=== PATIENT | female | born 1950 | race Caucasian/White ===

== ENCOUNTER 2021-12-18 13:27 | Inpatient (IN) | payer OTHER, MEDICARE ==
[~2021-12-18] VITALS: Ht 160 cm; Wt 80.2 kg
[2021-12-18] MEDS ORDERED: MORPHINE 4 MG/ML 1ML VIAL/SYRINGE IV PRN (13:45)
[2021-12-18 14:21] LABS: BASO % 0.4 % (0.0-1.0); EOS # 0.2 10^3/uL (0.0-0.5); EOS % 1.8 % (0.0-3.0); HEMATOCRIT 40.9 % (36.0-47.0); HEMOGLOBIN 13.5 g/dl (12.0-15.5); LYMPH # 0.8 10^3/uL (1.5-5.0); LYMPH % 8.4 % (24.0-44.0); MEAN CORPUSCULAR HEMOGLOBIN 30.2 pg (27.0-33.0); MEAN CORPUSCULAR VOLUME 91.5 fl (80.0-96.0); MONO # 0.6 10^3/uL (0.0-0.8); MONO % 6.6 % (2.0-8.0); NEUTROPHILS # 7.3 10^3/uL (1.5-8.5); NEUTROPHILS % 81.8 % (36.0-66.0); PLATELET COUNT, AUTOMATED 182 10^3/uL (150-450); RED BLOOD COUNT 4.47 10^6/uL (4.00-5.40); WHITE BLOOD COUNT 8.9 10^3/uL (4.0-10.0)
[2021-12-18] MEDS ORDERED: ISOVUE-370 76% 100ML VIAL As Ordered ONE (14:28)
[2021-12-18 14:31] LABS: PROTHROMBIN TIME 13.6 SECONDS (12.7-14.5)
[2021-12-18 14:42] LABS: CK-MB VALUE MASS 3.4 NG/ML (<3.6); MB/CK RELATIVE INDEX 0.84 (< OR =4)
[2021-12-18] MEDS ORDERED: POTASSIUM CHLORIDE 10MEQ SR TABLET PO ONE (17:00)
[2021-12-18] MEDS ORDERED: CLON0.5T2 PO ×2 (17:07)
[2021-12-18] MEDS ORDERED: LEXA1TAB2 PO (17:07)
[2021-12-18] MEDS ORDERED: ARIP1TAB6 PO (17:07)
[2021-12-18] MEDS ORDERED: TRAZ-252 PO (17:07)
[2021-12-18] MEDS ORDERED: PRIL20TA2 PO (17:07)
[2021-12-18] MEDS ORDERED: NAPR220C23 PO (17:07)
[2021-12-18] MEDS ORDERED: TOPI100T9 PO (17:07)
[2021-12-18] MEDS ORDERED: HOME MED LIST COMPLETE! XX SCH (17:10)
[2021-12-18 17:12] LABS: RSV AMPLIFICATION NEGATIVE (NEGATIVE)
[2021-12-18 17:13] LABS: CK-MB VALUE MASS 4.8 NG/ML (<3.6); MB/CK RELATIVE INDEX 2.35 (< OR =4)
[2021-12-18] MEDS ORDERED: ONDANSETRON 4MG 2ML VIAL IV ONE (17:25)
[2021-12-18] MEDS ORDERED: COMBIVENT RESPIMAT 100-20MCG INHALER 4GM INH PRN (19:10)
[2021-12-18] MEDS ORDERED: ACETAMINOPHEN TAB 650MG DOSE (2X325MG) PO PRN ×2 (19:10→19:15)
[2021-12-18] MEDS ORDERED: MORPHINE 2 MG/ML 1ML VIAL IV PRN (19:15)
[2021-12-18] MEDS ORDERED: PILL CUTTER 1 EACH XX PRN (19:40)
[2021-12-18 20:45] LABS: INR 0.98; PROTHROMBIN TIME 13.4 SECONDS (12.7-14.5)
[2021-12-18 20:46] LABS: FIBRINOGEN 426 MG/DL (268-480); PARTIAL THROMBOPLASTIN TIME 22.9 SECONDS (25.9-37.0)
[2021-12-18 21:06] LABS: ALBUMIN 3.7 GM/DL (3.2-5.2); BILIRUBIN,DIRECT 0.5 MG/DL (0.0-0.2); BILIRUBIN,TOTAL 0.7 MG/DL (0.2-1.0); C REACTIVE PROTEIN QUANTITATIV 4.44 MG/DL (0.00-0.30)
[2021-12-18 21:14] LABS: D-DIMER QUANT > 4000 ng/ml (<500)
[2021-12-18 21:15] VITALS: BP 124/76
[2021-12-18] MEDS: traZODone 50 MG TAB PO SCH (22:45)
[2021-12-18] MEDS: clonazePAM 0.5 MG TAB PO SCH (22:46)
[2021-12-18] MEDS: TOPIRAMATE (TopAMAX) 100 MG TAB PO SCH (22:46)
[2021-12-18] MEDS: LR 1,000 ML IV SCH (22:47)
[2021-12-18] MEDS: ENOXAPARIN 40MG/0.4ML SYRINGE (J1650 PER 10MG) SC SCH (22:47)
[2021-12-18 23:57] VITALS: BP 120/63
[2021-12-19] VITALS (8 sets, daily range): BP systolic 106–142; BP diastolic 55–76
[2021-12-19] MEDS ORDERED: REMDESIVIR 200 MG in NS 250 ML IV ONE ×2
[2021-12-19] MEDS ORDERED: SODIUM CHLORIDE 0.9% INJ 10 ML SYR IV ONE (02:00)
[2021-12-19] MEDS: NORCO, ANEXSIA 5/325MG TABLET (HYDROcodone/ACETAMINOPHEN) PO PRN ×2 (03:24→21:05)
[2021-12-19] MEDS: LR 1,000 ML IV SCH ×3 (05:37→20:56)
[2021-12-19] MEDS ORDERED: ALBUTEROL 90 MCG/ACT 8GM HFA INHALER INH PRN (07:00)
[2021-12-19] MEDS ORDERED: ALBUTEROL SULFATE 2.5 MG/0.5 ML INH NEB SOLN INH PRN (07:01)
[2021-12-19] MEDS ORDERED: methylPREDNISolone 125MG 2ML VIAL IV PRN (07:01)
[2021-12-19] MEDS ORDERED: diphenhydrAMINE 50MG/ML VIAL (J1200) IV PRN (07:01)
[2021-12-19] MEDS ORDERED: EPINEPHrine INJ 1 MG/ML 1ML AMP IM PRN (07:01)
[2021-12-19 08:36] LABS: BASO % 0.4 % (0.0-1.0); EOS # 0.1 10^3/uL (0.0-0.5); EOS % 1.1 % (0.0-3.0); HEMATOCRIT 38.7 % (36.0-47.0); HEMOGLOBIN 12.7 g/dl (12.0-15.5); LYMPH # 1.4 10^3/uL (1.5-5.0); LYMPH % 26.2 % (24.0-44.0); MEAN CORPUSCULAR HEMOGLOBIN 30.2 pg (27.0-33.0); MEAN CORPUSCULAR HGB CONC 32.8 g/dl (32.0-36.5); MEAN CORPUSCULAR VOLUME 91.9 fl (80.0-96.0); MONO # 0.4 10^3/uL (0.0-0.8); MONO % 6.6 % (2.0-8.0); NEUTROPHILS # 3.4 10^3/uL (1.5-8.5); NEUTROPHILS % 65.3 % (36.0-66.0); PLATELET COUNT, AUTOMATED 146 10^3/uL (150-450); RED BLOOD COUNT 4.21 10^6/uL (4.00-5.40); WHITE BLOOD COUNT 5.3 10^3/uL (4.0-10.0)
[2021-12-19 08:59] LABS: ALBUMIN 3.3 GM/DL (3.2-5.2); ALT/SGPT 333 U/L (12-78); BILIRUBIN,DIRECT 0.1 MG/DL (0.0-0.2); BILIRUBIN,TOTAL 0.3 MG/DL (0.2-1.0); BLOOD UREA NITROGEN 15 MG/DL (7-18); CALCIUM LEVEL 8.5 MG/DL (8.8-10.2); CARBON DIOXIDE LEVEL 23 MEQ/L (21-32); CHLORIDE LEVEL 113 MEQ/L (98-107); CREATININE FOR GFR 0.86 MG/DL (0.55-1.30); GLOMERULAR FILTRATION RATE > 60.0 (>45); GLUCOSE, FASTING 139 MG/DL (70-100); MAGNESIUM LEVEL 1.9 MG/DL (1.8-2.4); POTASSIUM SERUM 3.7 MEQ/L (3.5-5.1); SODIUM LEVEL 142 MEQ/L (136-145); TOTAL PROTEIN 6.8 GM/DL (6.4-8.2)
[2021-12-19] MEDS: TOPIRAMATE (TopAMAX) 100 MG TAB PO SCH ×2 (09:17→20:56)
[2021-12-19] MEDS: clonazePAM 0.5 MG TAB PO SCH ×3 (09:18→20:55)
[2021-12-19] MEDS: PANTOPRAZOLE 40MG TAB (PROTONIX) PO SCH (09:18)
[2021-12-19] MEDS: ESCITALOPRAM OXALATE 10 MG TAB (LEXAPRO) PO SCH (09:19)
[2021-12-19] MEDS: ENOXAPARIN 40MG/0.4ML SYRINGE (J1650 PER 10MG) SC SCH ×2 (09:37→20:56)
[2021-12-19] MEDS ORDERED: NS 1,000 ML IV SCH (18:40)
[2021-12-19] MEDS ORDERED: BEBTELOVIMAB 175MG 2ML VIAL (EUA) IV ONE (20:00)
[2021-12-19] MEDS: BENZONATATE 100MG CAPSULE PO PRN (20:55)
[2021-12-19] MEDS: traZODone 50 MG TAB PO SCH (20:55)
[2021-12-19] MEDS ORDERED: REMDESIVIR 100 MG in NS 250 ML IV SCH (21:00)
[2021-12-19] MEDS ORDERED: SODIUM CHLORIDE 0.9% INJ 10 ML SYR IV SCH (22:00)
[2021-12-20 04:28] VITALS: BP 144/89
[2021-12-20] MEDS: BENZONATATE 100MG CAPSULE PO PRN (06:12)
[2021-12-20] MEDS: NORCO, ANEXSIA 5/325MG TABLET (HYDROcodone/ACETAMINOPHEN) PO PRN ×3 (06:15→18:31)
[2021-12-20 06:22] LABS: BASO % 0.3 % (0.0-1.0); EOS # 0.3 10^3/uL (0.0-0.5); EOS % 4.6 % (0.0-3.0); HEMATOCRIT 39.7 % (36.0-47.0); HEMOGLOBIN 12.9 g/dl (12.0-15.5); LYMPH # 1.2 10^3/uL (1.5-5.0); LYMPH % 19.9 % (24.0-44.0); MEAN CORPUSCULAR HEMOGLOBIN 29.6 pg (27.0-33.0); MEAN CORPUSCULAR HGB CONC 32.5 g/dl (32.0-36.5); MEAN CORPUSCULAR VOLUME 91.1 fl (80.0-96.0); MONO # 0.7 10^3/uL (0.0-0.8); MONO % 11.1 % (2.0-8.0); NEUTROPHILS # 3.9 10^3/uL (1.5-8.5); NEUTROPHILS % 63.9 % (36.0-66.0); PLATELET COUNT, AUTOMATED 138 10^3/uL (150-450); RED BLOOD COUNT 4.36 10^6/uL (4.00-5.40)
[2021-12-20 06:34] LABS: INR 1.05; PROTHROMBIN TIME 14.2 SECONDS (12.7-14.5)
[2021-12-20 06:35] LABS: PARTIAL THROMBOPLASTIN TIME 39.6 SECONDS (25.9-37.0)
[2021-12-20 06:45] LABS: ALT/SGPT 221 U/L (12-78); BILIRUBIN,TOTAL 0.4 MG/DL (0.2-1.0); BLOOD UREA NITROGEN 14 MG/DL (7-18); CALCIUM LEVEL 8.6 MG/DL (8.8-10.2); CARBON DIOXIDE LEVEL 27 MEQ/L (21-32); CHLORIDE LEVEL 111 MEQ/L (98-107); CREATININE FOR GFR 0.66 MG/DL (0.55-1.30); GLOMERULAR FILTRATION RATE > 60.0 (>45); GLUCOSE, FASTING 94 MG/DL (70-100); POTASSIUM SERUM 3.8 MEQ/L (3.5-5.1); SODIUM LEVEL 142 MEQ/L (136-145); TOTAL PROTEIN 6.5 GM/DL (6.4-8.2)
[2021-12-20 06:54] LABS: ALBUMIN 3.2 GM/DL (3.2-5.2); BILIRUBIN,DIRECT 0.1 MG/DL (0.0-0.2); BILIRUBIN,TOTAL 0.4 MG/DL (0.2-1.0); MAGNESIUM LEVEL 1.7 MG/DL (1.8-2.4); TOTAL PROTEIN 6.3 GM/DL (6.4-8.2)
[2021-12-20 08:00] VITALS: BP 142/82
[2021-12-20] MEDS ORDERED: MAGNESIUM OXIDE 400MG TAB (MAG-OX) PO ONE (09:00)
[2021-12-20] MEDS: ENOXAPARIN 40MG/0.4ML SYRINGE (J1650 PER 10MG) SC SCH ×2 (09:27→20:38)
[2021-12-20] MEDS: clonazePAM 0.5 MG TAB PO SCH ×3 (09:28→20:38)
[2021-12-20] MEDS: ESCITALOPRAM OXALATE 10 MG TAB (LEXAPRO) PO SCH (09:28)
[2021-12-20] MEDS: TOPIRAMATE (TopAMAX) 100 MG TAB PO SCH ×2 (09:28→20:38)
[2021-12-20] MEDS: PANTOPRAZOLE 40MG TAB (PROTONIX) PO SCH (09:28)
[2021-12-20 11:51] LABS: HEPATITIS B CORE ANTIBODY IGM NEGATIVE (NEGATIVE); HEPATITIS B SURFACE ANTIGEN NEGATIVE (NEGATIVE); HEPATITIS C VIRUS ABY INDEX 0.1 INDEX (<0.8)
[2021-12-20 16:00] VITALS: BP_SYST 118; BP_SYST 126; BP_DIAS 67; BP_DIAS 74
[2021-12-20 19:42] VITALS: BP 116/61
[2021-12-20] MEDS: traZODone 50 MG TAB PO SCH (20:38)
[2021-12-20 23:49] VITALS: BP 125/74
[2021-12-21] MEDS: NORCO, ANEXSIA 5/325MG TABLET (HYDROcodone/ACETAMINOPHEN) PO PRN ×3 (01:11→20:40)
[2021-12-21 03:58] VITALS: BP 121/69
[2021-12-21 06:33] LABS: BASO % 0.6 % (0.0-1.0); EOS # 0.2 10^3/uL (0.0-0.5); EOS % 4.6 % (0.0-3.0); HEMATOCRIT 36.3 % (36.0-47.0); HEMOGLOBIN 12.1 g/dl (12.0-15.5); LYMPH # 1.6 10^3/uL (1.5-5.0); LYMPH % 31.2 % (24.0-44.0); MEAN CORPUSCULAR HEMOGLOBIN 30.3 pg (27.0-33.0); MEAN CORPUSCULAR HGB CONC 33.3 g/dl (32.0-36.5); MEAN CORPUSCULAR VOLUME 90.8 fl (80.0-96.0); MONO # 0.6 10^3/uL (0.0-0.8); MONO % 10.6 % (2.0-8.0); NEUTROPHILS # 2.7 10^3/uL (1.5-8.5); NEUTROPHILS % 52.6 % (36.0-66.0); PLATELET COUNT, AUTOMATED 141 10^3/uL (150-450); WHITE BLOOD COUNT 5.2 10^3/uL (4.0-10.0)
[2021-12-21 06:52] LABS: ALT/SGPT 140 U/L (12-78); BILIRUBIN,TOTAL 0.4 MG/DL (0.2-1.0); BLOOD UREA NITROGEN 15 MG/DL (7-18); CALCIUM LEVEL 8.6 MG/DL (8.8-10.2); CARBON DIOXIDE LEVEL 24 MEQ/L (21-32); CHLORIDE LEVEL 112 MEQ/L (98-107); GLOMERULAR FILTRATION RATE > 60.0 (>45); GLUCOSE, FASTING 118 MG/DL (70-100); MAGNESIUM LEVEL 1.7 MG/DL (1.8-2.4); POTASSIUM SERUM 3.9 MEQ/L (3.5-5.1); SODIUM LEVEL 143 MEQ/L (136-145); TOTAL PROTEIN 5.9 GM/DL (6.4-8.2)
[2021-12-21 08:00] VITALS: BP 130/73
[2021-12-21] MEDS: ENOXAPARIN 40MG/0.4ML SYRINGE (J1650 PER 10MG) SC SCH ×2 (09:44→20:39)
[2021-12-21] MEDS: clonazePAM 0.5 MG TAB PO SCH ×3 (09:44→20:38)
[2021-12-21] MEDS: ESCITALOPRAM OXALATE 10 MG TAB (LEXAPRO) PO SCH (09:45)
[2021-12-21] MEDS: TOPIRAMATE (TopAMAX) 100 MG TAB PO SCH ×2 (09:45→20:37)
[2021-12-21] MEDS: PANTOPRAZOLE 40MG TAB (PROTONIX) PO SCH (09:45)
[2021-12-21 12:46] VITALS: BP 139/76
[2021-12-21 16:12] VITALS: BP 132/71
[2021-12-21] MEDS ORDERED: MOM 30ML SUSPENSION UDC PO PRN (17:05)
[2021-12-21 19:34] VITALS: BP 140/76
[2021-12-21] MEDS: MAGNESIUM OXIDE 400MG TAB (MAG-OX) PO SCH (20:37)
[2021-12-21] MEDS: SENOKOT S TAB PO SCH (20:38)
[2021-12-21] MEDS: traZODone 50 MG TAB PO SCH (20:38)
[2021-12-22 00:15] VITALS: BP 133/71
[2021-12-22 04:34] VITALS: BP 135/72
[2021-12-22 06:49] LABS: INR 1.09; PROTHROMBIN TIME 14.5 SECONDS (12.7-14.5)
[2021-12-22 06:50] LABS: PARTIAL THROMBOPLASTIN TIME 38.5 SECONDS (25.9-37.0)
[2021-12-22 07:00] LABS: ALBUMIN 3.3 GM/DL (3.2-5.2); ALT/SGPT 155 U/L (12-78); BILIRUBIN,TOTAL 0.6 MG/DL (0.2-1.0); BLOOD UREA NITROGEN 15 MG/DL (7-18); CALCIUM LEVEL 9.1 MG/DL (8.8-10.2); CARBON DIOXIDE LEVEL 24 MEQ/L (21-32); CHLORIDE LEVEL 108 MEQ/L (98-107); CREATININE FOR GFR 0.62 MG/DL (0.55-1.30); GLOMERULAR FILTRATION RATE > 60.0 (>45); GLUCOSE, FASTING 107 MG/DL (70-100); POTASSIUM SERUM 3.7 MEQ/L (3.5-5.1); SODIUM LEVEL 140 MEQ/L (136-145); TOTAL PROTEIN 7.2 GM/DL (6.4-8.2)
[2021-12-22 07:11] LABS: ALBUMIN 3.2 GM/DL (3.2-5.2); BILIRUBIN,DIRECT 0.2 MG/DL (0.0-0.2); BILIRUBIN,TOTAL 0.5 MG/DL (0.2-1.0); TOTAL PROTEIN 7.1 GM/DL (6.4-8.2)
[2021-12-22 07:55] VITALS: BP 134/79
[2021-12-22] MEDS: PANTOPRAZOLE 40MG TAB (PROTONIX) PO SCH (10:49)
[2021-12-22] MEDS: MAGNESIUM OXIDE 400MG TAB (MAG-OX) PO SCH (10:49)
[2021-12-22] MEDS: ENOXAPARIN 40MG/0.4ML SYRINGE (J1650 PER 10MG) SC SCH (10:49)
[2021-12-22] MEDS: SENOKOT S TAB PO SCH (10:50)
[2021-12-22] MEDS: ESCITALOPRAM OXALATE 10 MG TAB (LEXAPRO) PO SCH (10:50)
[2021-12-22] MEDS: TOPIRAMATE (TopAMAX) 100 MG TAB PO SCH (10:50)
[2021-12-22] MEDS: clonazePAM 0.5 MG TAB PO SCH ×2 (10:51→19:03)
[2021-12-22] MEDS: NORCO, ANEXSIA 5/325MG TABLET (HYDROcodone/ACETAMINOPHEN) PO PRN ×2 (10:51→19:03)
[2021-12-22 12:00] VITALS: BP 126/84
[2021-12-22] MEDS ORDERED: CEFU50TA PO ×2 (14:44→16:28)
[2021-12-22 16:00] VITALS: BP 132/77
[2021-12-22] MEDS ORDERED: HYDR-3715 PO (16:28)
== END 2021-12-22 19:00 | disposition home or self-care (01) | DRG 135 ==
LOC: M ED 13:27 → EDBD 13:27 → M ED INP 19:11 → ENRESERV 20:48 → M 4MAIN 21:15
PROVIDERS: ADMIT Surgery; ATTEND Surgery
PROC: XW033E5 Introduction of Remdesivir Anti-infective into Peripheral Vein, Percutaneous Approach, New Technology Group 5 (ICD-10-PCS; principal; 2021-12-19)
PROC: XW033H6 Introduction of Other New Technology Monoclonal Antibody into Peripheral Vein, Percutaneous Approach, New Technology Group 6 (ICD-10-PCS; 2021-12-19)
DX: S22.43XA Multiple fractures of ribs, bilateral, initial encounter for closed fracture (principal); U07.1 COVID-19; S32.040A Wedge compression fracture of fourth lumbar vertebra, initial encounter for closed fracture; E83.42 Hypomagnesemia; V47.0XXA Car driver injured in collision with fixed or stationary object in nontraffic accident, initial encounter; W22.11XA Striking against or struck by driver side automobile airbag, initial encounter; Y92.413 State road as the place of occurrence of the external cause; Z79.899 Other long term (current) drug therapy; F32.A Depression, unspecified; F41.9 Anxiety disorder, unspecified; K21.9 Gastro-esophageal reflux disease without esophagitis; Z90.49 Acquired absence of other specified parts of digestive tract; R91.1 Solitary pulmonary nodule; E07.9 Disorder of thyroid, unspecified; E87.6 Hypokalemia; R74.01 Elevation of levels of liver transaminase levels; N39.0 Urinary tract infection, site not specified; B95.7 Other staphylococcus as the cause of diseases classified elsewhere